=== PATIENT | female | born 1980 | race Caucasian/White ===

== ENCOUNTER 2020-09-28 09:07 | Outpatient (CLI) | payer OTHER | END 2020-09-28 12:19 | disposition home or self-care (01) | LOC: MRI 09:07 | DX: N85.8 Other specified noninflammatory disorders of uterus (principal); N64.59 Other signs and symptoms in breast; N36.1 Urethral diverticulum; Z12.31 Encounter for screening mammogram for malignant neoplasm of breast; D25.9 Leiomyoma of uterus, unspecified | CPT/HCPCS: 72196 ==

== ENCOUNTER 2023-09-20 09:19 | Emergency (ER) | payer OTHER ==
[~2023-09-20] VITALS: Ht 170.2 cm; Wt 90.7 kg
[2023-09-20 10:27] LABS: HEMATOCRIT 39.1 % (36.0-45.00); MEAN CELL VOLUME 89.9 fL (80.00-100.00); MEAN CORPUSCULAR HEMOGLOBIN 29.9 pg (27.00-32.0); MEAN CORPUSCULAR HGB CONC 33.2 g/dl (32.0-36.0); PLATELET COUNT 265 K/uL (150-450); RED BLOOD COUNT 4.34 M/uL (4.00-6.00); RED CELL DISTRIBUTION WIDTH 13.3 % (11.5-14.5)
[2023-09-20 11:12] LABS: PH,URINE 5.5 (5.0-8.0); URINE APPEARANCE Clear; URINE BILIRRUBIN Negative (NEGATIVE); URINE BLOOD Negative; URINE COLOR Yellow; URINE GLUCOSE Negative (NEGATIVE); URINE LEUKOCYTE Trace; URINE NITRATE Negative; URINE PROTEIN Negative (NEGATIVE); URINE UROBILINOGEN 0.2 E.U./dl
[2023-09-20 11:17] LABS: URINE EPITHELIAL CELLS 34.6 uL (0.0-38.8); URINE RBC 18.3 uL (0.0-20.8)
[2023-09-20 11:41] LABS: CALCIUM 8.3 mg/dL (8.5-10.1); CREATININE SERUM 0.91 mg/dL (0.55-1.02); GFR 66.85; POTASSIUM 3.51 mEq/L (3.5-5.1)
== END 2023-09-20 14:09 | disposition home or self-care (01) ==
LOC: ER 09:19
PROVIDERS: General Practice
DX: K52.89 Other specified noninfective gastroenteritis and colitis (principal); E89.0 Postprocedural hypothyroidism; Z20.822 Contact with and (suspected) exposure to COVID-19